=== PATIENT | male | born 1945 | race Caucasian/White ===

== ENCOUNTER 2019-01-27 08:17 | Day surgery (SDC) | payer OTHER, MEDICARE ==
[~2019-01-27 08:17] MED LIST: PROPOFOL INJ 200 MG/20 ML VIAL IV ONE
[2019-01-27 09:47] VITALS: BP 150/85
--- NOTE | 2019-01-27 11:25 | Operative Report ---
Operative Report DATE OF SURGERY: 01/27/19 Operative Report: The risks, benefits and alternatives of the procedure including the risk of bleeding, perforation requiring surgery have been explained to the patient in detail and informed consent has been obtained. The patient is taken back to the endoscopy suite and placed in the left, lateral decubital position. Timeout was called. Propofol medication is administered. Rectal examination is done which did not reveal any masses, tears or fissures. An Olympus videoscope was introduced into the patient's rectum. The scope was then carefully advanced all the way to the cecum. The cecum was identified by the usual anatomical landmarks of the ileocecal valve as well as the appendiceal orifice. Photodocumentation is obtained. The scope was then sequentially pulled back via the various segments of the colon including the ascending colon, hepatic flexure, transverse colon, splenic flexure, descending colon and finally into the rectosigmoid portions of the colon. Retroflexion maneuvers performed. PREOPERATIVE DIAGNOSIS: Colorectal cancer screening POSTOPERATIVE DIAGNOSIS: 2 Polyps in the ascending colon is removed via snare polypectomy and retrieved. 1 transverse colon polypremoved via snare polypecto my and retrieved. 1 descending colon polyp that is removed via snare polypectomy and retrieved. Diverticulosis without any evidence of diverticulitis. Internal hemorrhoids OPERATION: Colonoscopy with snare polypectomy SURGEON: DAVID GARLAND ANESTHESIA: LMAC TISSUE REMOVED OR ALTERED: As noted above. COMPLICATIONS: None. ESTIMATED BLOOD LOSS: None. INTRAOPERATIVE FINDINGS: As noted above. PROCEDURE: Patient tolerated the procedure well. No immediate postprocedure complications are noted. Patient is discharged in good condition. Discharge date 01/27/2019. Discharge diet: Regular. Discharge activity: Regular. 2 to 3-week follow-up to discuss findings. Patient is instructed to call the office or proceed to the emergency room should there be any further problems or questions. 3-year surveillance colonoscopy.
--- NOTE | 2019-01-27 13:14 | EKG REPORT ---
SEVERITY:- ABNORMAL ECG - SINUS RHYTHM POSSIBLE OLD INFERIOR VT, CLINICAL CORRELATION NEEDED : Confirmed by: Estuardo Patel MD 27-Jan-2019 13:13:38
== END 2019-01-27 09:50 | disposition home or self-care (01) ==
LOC: END 08:17
PROVIDERS: ATTEND Internal Medicine Gastroenterology
DX: Z12.11 Encounter for screening for malignant neoplasm of colon (principal); K57.30 Diverticulosis of large intestine without perforation or abscess without bleeding; K64.8 Other hemorrhoids; D12.3 Benign neoplasm of transverse colon; D12.2 Benign neoplasm of ascending colon; Z79.899 Other long term (current) drug therapy; Z79.82 Long term (current) use of aspirin
CPT/HCPCS: 45385; 88305 ×2; 93005; 93010; 00811; J2704; 811

== ENCOUNTER 2020-03-20 05:23 | Inpatient (IN) | payer MEDICARE, OTHER ==
[2020-03-15 10:18] LABS: HEMATOCRIT 45.4 % (37.9-51.0); HEMOGLOBIN 15.5 g/dL (13.5-17.0); MEAN CORPUSCULAR HEMOGLOBIN 30.2 pg (27.0-33.4); MEAN CORPUSCULAR HGB CONC 34.1 g/dL (32.0-36.0); MEAN CORPUSCULAR VOLUME 88 fl (80-97); PLATELET COUNT 230 10^3/uL (150-450); RED BLOOD COUNT 5.13 10^6/uL (4.35-5.55); RED CELL DISTRIBUTION WIDTH 14.5 % (11.5-14.0); WHITE BLOOD COUNT 6.9 10^3/uL (4.0-10.5)
[2020-03-15 10:27] LABS: APPEARANCE,URINE CLEAR; BILIRUBIN,URINE NEGATIVE (NEGATIVE); COLOR,URINE YELLOW; GLUCOSE, URINE NEGATIVE (NEGATIVE); KETONES,URINE NEGATIVE (NEGATIVE); LEUKOCYTE ESTERASE,URINE NEGATIVE (NEGATIVE); NITRITE,URINE NEGATIVE (NEGATIVE); PROTEIN,URINE NEGATIVE (NEGATIVE); URINE SPECIFIC GRAVITY 1.019; UROBILINOGEN,URINE NEGATIVE mg/dL (<2.0)
[2020-03-15 10:38] LABS: URINE AMPHETAMINES SCREEN NEGATIVE; URINE BARBITURATES SCREEN NEGATIVE; URINE BENZODIAZEPINES SCREEN NEGATIVE; URINE COCAINE SCREEN NEGATIVE; URINE MARIJUANA (THC) SCREEN NEGATIVE; URINE METHADONE SCREEN NEGATIVE; URINE PHENCYCLIDINE SCREEN NEGATIVE
[2020-03-15 10:47] LABS: INTERNATIONAL RATION (INR) 1.01; PROTHROMBIN TIME 13.5 SEC (11.4-15.4)
[2020-03-15 10:48] LABS: PARTIAL THROMBOPLASTIN TIME 37.6 SEC (23.5-35.8)
[2020-03-15 10:49] LABS: ANION GAP 11 (5-19); BLOOD UREA NITROGEN 16 mg/dL (7-20); CARBON DIOXIDE 30 mmol/L (22-30); CHLORIDE 102 mmol/L (98-107); GLUCOSE 131 mg/dL (75-110); POTASSIUM 3.4 mmol/L (3.6-5.0)
[2020-03-15 10:57] LABS: ALCOHOL < 10 mg/dL (NONE DETECTED)
--- NOTE | 2020-03-15 12:13 | RADIOLOGY REPORT (SQ) ---
EXAM DESCRIPTION: CHEST PA/LATERAL IMAGES COMPLETED DATE/TIME: 03/15/2020 11:24 am REASON FOR STUDY: PRE-OP COMPARISON: None EXAM PARAMETERS: NUMBER OF VIEWS: two views TECHNIQUE: Digital Frontal and Lateral radiographic views of the chest acquired. RADIATION DOSE: NA LIMITATIONS: none FINDINGS: LUNGS AND PLEURA: No opacities, masses or pneumothorax. No pleural effusion. MEDIASTINUM AND HILAR STRUCTURES: No masses or contour abnormalities. HEART AND VASCULAR STRUCTURES: Heart normal size. No evidence for failure. BONES: No acute findings. HARDWARE: None in the chest. OTHER: No other significant finding. IMPRESSION: NO SIGNIFICANT RADIOGRAPHIC FINDING IN THE CHEST. TECHNICAL DOCUMENTATION: JOB ID: [id number] 2010 [employer]- All Rights Reserved Reading location - IP/workstation name: [email or web address]
--- NOTE | 2020-03-15 21:18 | EKG REPORT ---
SEVERITY:- ABNORMAL ECG - SINUS RHYTHM PROBABLE INFERIOR INFARCT, AGE INDETERMINATE BORDERLINE PROLONGED QT INTERVAL : Confirmed by: Karol Roy MD 15-Mar-2020 21:18:03
[~2020-03-20 05:23] MED LIST changes: +CEFAZOLIN 2 GM/D5W RTU 2 GM/50 ML RTUPB IV ONE; +CEFAZOLIN 2 GM/D5W RTU 2 GM/50 ML RTUPB IV PRN; +LACTATED RINGERS 1000 ML IV PRN; +LIDOCAINE 0.5% INJ-PF (5 MG/ML) 50 ML SDV SUBCUT PRN; -PROPOFOL INJ 200 MG/20 ML VIAL IV ONE
[2020-03-20 06:28] LABS: POTASSIUM 3.3 mmol/L (3.6-5.0)
[2020-03-20] MEDS ORDERED: KETAMINE HCL INJ 500 MG/10 ML VIAL ONE (06:55)
[2020-03-20] MEDS ORDERED: LIDOCAINE 2% INJ-PF (20 MG/ML) 10 ML AMPUL ONE (06:55)
[2020-03-20] MEDS ORDERED: MIDAZOLAM 2 MG/2 ML INJ ONE (06:55)
[2020-03-20] MEDS ORDERED: FENTANYL CITRATE INJ/PF 250 MCG/5 ML AMPULE ONE (06:55)
[2020-03-20] MEDS ORDERED: EPHEDRINE SULFATE INJ 50 MG/1 ML AMPULE ONE (06:55)
[2020-03-20] MEDS ORDERED: PROPOFOL 1,000 MG/100 ML INFUS..BTL IV ONE (06:56)
[2020-03-20] MEDS ORDERED: PROPOFOL INJ 200 MG/20 ML VIAL IV ONE ×2 (06:56→11:53)
[2020-03-20] MEDS ORDERED: MINERAL OIL (STERILE) 10 ML VIAL ONE (07:20)
[2020-03-20] MEDS ORDERED: HEPARIN SOD (PORCINE) 1,000 UNIT/ML 10 ML VIAL ONE (07:20)
[2020-03-20] MEDS ORDERED: BACITRACIN INJ 50,000 UNIT VIAL ONE (07:20)
[2020-03-20] MEDS ORDERED: CEFAZOLIN INJ 1 GM VIAL ONE ×2 (08:09→12:02)
[2020-03-20] MEDS ORDERED: MEPERIDINE HCL/PF INJ 25 MG/1 ML DISP.SYRIN IV PRN (08:20)
[2020-03-20] MEDS ORDERED: PROMETHAZINE HCL INJ 25 MG/1 ML VIAL IV PRN (08:20)
[2020-03-20] MEDS ORDERED: MORPHINE SULFATE 10 MG/ML INJ IV PRN ×2 (08:20→13:24)
[2020-03-20] MEDS ORDERED: FENTANYL CITRATE INJ/PF 100 MCG/2 ML AMPUL IV PRN ×3 (08:20)
[2020-03-20] MEDS ORDERED: DIPHENHYDRAMINE HCL 50 MG/ML VIAL IV PRN ×2 (08:20→13:33)
[2020-03-20] MEDS: BUPIVACAINE INJ/PF LIPOSOME/PF 266 MG/20 ML SDV ONE ×2 (08:57→12:54)
[2020-03-20] MEDS ORDERED: ONDANSETRON HCL INJ/PF 4 MG/2 ML SDV ONE (09:49)
[2020-03-20] MEDS ORDERED: PHENYLEPHRINE HCL INJ/PF 10 MG/1 ML SDV ONE (09:49)
[2020-03-20] MEDS ORDERED: ROCURONIUM BROMIDE INJ 50 MG/5 ML VIAL IV ONE (09:49)
[2020-03-20] MEDS ORDERED: SUCCINYLCHOLINE CHLORIDE INJ 200 MG/10 ML VIAL ONE (09:49)
[2020-03-20] MEDS ORDERED: DEXAMETHASONE SOD PHOSPHATE INJ 4 MG/1 ML VIAL ONE (09:49)
[2020-03-20] MEDS ORDERED: BUPIVACAINE HCL 0.5 % INJ/PF 30 ML SDV ONE (12:34)
[2020-03-20] MEDS ORDERED: OXYCODONE-ACETAMINOPHEN 5-325 MG TABLET PO PRN (13:24)
[2020-03-20] MEDS ORDERED: RINGERS SOLUTION,LACTATED 1,000 ML IV PRN (13:24)
[2020-03-20] MEDS ORDERED: HYDROCODONE/ACETAMINOPHEN 5-325 MG TABLET PO PRN (13:24)
[2020-03-20] MEDS ORDERED: ACETAMINOPHEN 325 MG TABLET PO PRN (13:24)
--- NOTE | 2020-03-20 13:29 | Operative Report ---
Operative Report DATE OF SURGERY: 03/20/20 PREOPERATIVE DIAGNOSIS: L4-5 L5-S1 spondylolisthesis. L4-5 L5-S1 stenosis with neurogenic claudication. L4-5 L5-S1 radiculitis right-sided. Back pain. POSTOPERATIVE DIAGNOSIS: L4-5 L5-S1 spondylolisthesis. L4-5 L5-S1 stenosis with neurogenic claudication. L4-5 L5-S1 radiculitis right-sided. Back pain. Status post L4-5 L5-S1 anterior lateral interbody spacers and fusion robotically assisted and posterior fusion instrumentation robotically assisted L4-5 L5-S1 left-sided iliac crest aspiration for bone marrow concentration to be used with allograft in interbody spaces. OPERATION: L4-5 L5-S1 anterior lateral interbody spacers and fusion robotically assisted and posterior fusion instrumentation robotically assisted L4-5 L5-S1 left-sided iliac crest aspiration for bone marrow concentration to be used with allograft in interbody spaces. SURGEON: REYNA HARLEY 1ST DIRECTOR [employer]CIAL SALES: VASHTI DYKES COMPLICATIONS: None ESTIMATED BLOOD LOSS: 275 cc blood loss 175 cc of Cell Saver given back to the patient PROCEDURE: Patient is brought into the room placed under general anesthesia received 3 g of Ancef within 1 hour of cut time was placed on the Erick table medial epicondyles and axillary areas are well-padded. Neuro monitoring leads for SSEP and cranial motor testing are placed on the patient as well as a Malik catheter is placed preoperatively. After appropriate surgical timeout the Abzena robot is utilized and on the right posterior superior iliac spine a pin is placed and attached to the robot. After obtaining registration imaging in the AP and oblique position and verification 6.5 x 50 mm screws x2 at L4 6.5 x 50 mm screws x2 at L5 and 6.5 x 35 mm screw on the right at S1 and 6.5 x 40 mm screw on the left at S1 [facility] [employer] screws screws are inserted using portal incisions on the right and left at L4-5 and L5-S1. Left iliac crest is aspirated at 2 different sites total of 50 cc of bone marrow aspirate are obtained and concentrated to be used an interbody spacer with the allograft. Attention was then paid to the left sided anterior lateral portal for entry into the disc space which is carried out under navigation guidance upon verification also with x-rays and then stimulation thresholds greater than 17 mA. Upon inserting the portal into the disc space at L4-5 and L5-S1 fluoroscopy was used to verify the position as it did also to verify the screws position. Endplate dutch and curettes and brushes are used to carry out a complete discectomy then the verify balloon is inserted to verify good contact with the endplates. Incite cortical fibers/demineralized bone matrix with bone marrow aspirate concentrate are placed anterior in the disc space then the appropriate size mesh spacer is introduced into the interbody. The mesh spacer is soaked in bone marrow aspirate concentrate and is filled with bone graft showing good correct ion and good containment within the disc space at L4-5 and L5-S1. Upon neuro monitoring testing and cranial motor testing found to be stable then the portal is removed anterior laterally and attention is then paid to the placement of the rods upon using the caliper device the appropriate length rods were determined to be 70 mm rods on the right and on the left those are passed down and locked into position and final tightened. Then the tabs are removed and the portals are irrigated with copious amounts of irrigation and the posterior superior iliac spine pin connected to the robot is removed as well and the deep and superficial tissues were infiltrated with 1.3% Exparel 20 cc mixed with 20 cc of 0.5% bupivacaine plain. The portals are closed using 2-0 Vicryl and then Dermabond and Steri-Strips then 4 x 4's were used to cover the wounds on the right and the left and dressed with coverall tape. Please note that this procedure could not be done without the assistance of Deny Dykes working to assist with the placement of the screws positioning of the robot carrying out the aspiration through the left side iliac crest aspiration please also note that the iliac crest aspiration is carried out on the left side through a separate incision. Deny Chu was instrumental throughout this whole process and I could not have done this procedure without his assistance as mentioned above.
[2020-03-20] MEDS ORDERED: METHOCARBAMOL INJ/PF 1000 MG/10 ML SDV ONE (13:32)
[2020-03-20] MEDS ORDERED: MAGNESIUM HYDROXIDE SUSP 30 ML UDCUP PO PRN (13:33)
[2020-03-20] MEDS ORDERED: PROMETHAZINE HCL INJ 25 MG/1 ML VIAL IM PRN (13:33)
[2020-03-20] MEDS ORDERED: ACETAMINOPHEN 650 MG SUPP.RECT PR PRN (13:33)
[2020-03-20] MEDS ORDERED: DIAZEPAM 5 MG TABLET PO PRN (13:33)
[2020-03-20] MEDS ORDERED: DIPHENHYDRAMINE HCL 25 MG CAPSULE PO PRN (13:33)
[2020-03-20] MEDS ORDERED: ACETAMINOPHEN SOLN 325 MG/10.15 ML UDCUP PO PRN (13:33)
[2020-03-20] MEDS ORDERED: PROMETHAZINE HCL 25 MG TABLET PO PRN (13:33)
[2020-03-20] MEDS ORDERED: ONDANSETRON HCL INJ/PF 4 MG/2 ML SDV IV PRN (13:33)
[2020-03-20] MEDS ORDERED: METHOCARBAMOL 750 MG TABLET PO SCH (13:45)
[2020-03-20] MEDS ORDERED: METHOCARBAMOL INJ/PF 1000 MG/10 ML SDV IV ONE (14:30)
[2020-03-20] MEDS: METHOCARBAMOL 750 MG TABLET PO SCH ×2 (15:37→20:59)
--- NOTE | 2020-03-20 15:46 | RADIOLOGY REPORT (SQ) ---
EXAM DESCRIPTION: NO CHG FLUORO; L SPINE 2 VIEWS IMAGES COMPLETED DATE/TIME: 03/20/2020 3:31 pm REASON FOR STUDY: LUMBAR FUSION ASSISTED WITH FLUORO IN OR COMPARISON: None. FLUOROSCOPY TIME: 5.7 minutes 3 Images saved to PACS LIMITATIONS: None. PROCEDURE: Lumbar fusion assisted with fluoro FINDINGS: Images from fluoro document placement of posterior rods from L4-S1 with screws through the pedicles. IMPRESSION: Lumbar fusion assisted with fluoro. Refer to operative note for further information. COMMENT: PQRS 6045F: Fluoroscopy time of the procedure is documented in the report. TECHNICAL DOCUMENTATION: JOB ID: [id number] 2010 [employer]- All Rights Reserved Reading location - IP/workstation name: [email or web address]
--- NOTE | 2020-03-20 15:46 | RADIOLOGY REPORT (SQ) ---
EXAM DESCRIPTION: NO CHG FLUORO; L SPINE 2 VIEWS IMAGES COMPLETED DATE/TIME: 03/20/2020 3:31 pm REASON FOR STUDY: LUMBAR FUSION ASSISTED WITH FLUORO IN OR COMPARISON: None. FLUOROSCOPY TIME: 5.7 minutes 3 Images saved to PACS LIMITATIONS: None. PROCEDURE: Lumbar fusion assisted with fluoro FINDINGS: Images from fluoro document placement of posterior rods from L4-S1 with screws through the pedicles. IMPRESSION: Lumbar fusion assisted with fluoro. Refer to operative note for further information. COMMENT: PQRS 6045F: Fluoroscopy time of the procedure is documented in the report. TECHNICAL DOCUMENTATION: JOB ID: [id number] 2010 [employer]- All Rights Reserved Reading location - IP/workstation name: [email or web address]
[2020-03-20] MEDS ORDERED: OXYCODONE HCL IR 5 MG TABLET PO PRN ×2 (16:47→16:48)
[2020-03-20] MEDS: ASCORBIC ACID 500 MG TABLET PO SCH (17:55)
[2020-03-20] MEDS: CEFAZOLIN SODIUM 3 GM in DEXTROSE 5%-WATER 100 ML IV SCH (17:55)
[2020-03-20] MEDS: SENNOSIDES/DOCUSATE 8.6-50 MG 1 EACH TABLET PO SCH (17:55)
[2020-03-20] MEDS ORDERED: CEFAZOLIN SODIUM 3 GM in DEXTROSE 5%-WATER 100 ML IV SCH (18:00)
[2020-03-20] MEDS ORDERED: CEFAZOLIN SODIUM 3 GM in DEXTROSE 5%-WATER 50 ML IV SCH (18:00)
[2020-03-20] MEDS: ACETAMINOPHEN 325 MG TABLET PO SCH (20:59)
[2020-03-21] MEDS: CEFAZOLIN SODIUM 3 GM in DEXTROSE 5%-WATER 100 ML IV SCH (02:00)
[2020-03-21 05:14] LABS: HEMATOCRIT 39.9 % (37.9-51.0); HEMOGLOBIN 13.8 g/dL (13.5-17.0); MEAN CORPUSCULAR HEMOGLOBIN 30.4 pg (27.0-33.4); MEAN CORPUSCULAR HGB CONC 34.6 g/dL (32.0-36.0); MEAN CORPUSCULAR VOLUME 88 fl (80-97); PLATELET COUNT 194 10^3/uL (150-450); RED BLOOD COUNT 4.53 10^6/uL (4.35-5.55); WHITE BLOOD COUNT 10.5 10^3/uL (4.0-10.5)
[2020-03-21] MEDS ORDERED: LEVOTHYROXINE SODIUM 0.025 MG TABLET PO SCH (06:00)
[2020-03-21] MEDS ORDERED: LEVOTHYROXINE SODIUM 0.1 MG TABLET PO SCH (06:00)
[2020-03-21] MEDS: METHOCARBAMOL 750 MG TABLET PO SCH (06:39)
[2020-03-21] MEDS: ACETAMINOPHEN 325 MG TABLET PO SCH (06:39)
[2020-03-21] MEDS ORDERED: HYDROCHLOROTHIAZIDE 25 MG TABLET PO SCH (08:00)
[2020-03-21] MEDS: SENNOSIDES/DOCUSATE 8.6-50 MG 1 EACH TABLET PO SCH (09:45)
[2020-03-21] MEDS: ASCORBIC ACID 500 MG TABLET PO SCH (09:47)
[2020-03-21] MEDS ORDERED: (PENDING PHARMACY ID) (Levothyroxine Sodium [Synthroid] 125 MCG) PO SCH (10:00)
[2020-03-21] MEDS ORDERED: (PENDING PHARMACY ID) (Ascorbic Acid [Vitamin C] 500 MG) PO SCH (10:00)
[2020-03-21] MEDS ORDERED: AMLODIPINE BESYLATE 10 MG TABLET PO SCH (10:00)
[2020-03-21 11:26] VITALS: BP 151/93
[2020-03-22] MEDS ORDERED: BISACODYL 5 MG TABEC PO PRN (05:00)
[2020-03-22] MEDS ORDERED: BISACODYL 10 MG SUPP.RECT PR PRN (05:00)
== END 2020-03-21 12:56 | disposition home or self-care (01) | DRG 454 ==
LOC: INOR 05:23 → 4W 14:39
PROVIDERS: ADMIT Orthopaedic Surgery; ATTEND Orthopaedic Surgery
PROC: 0SG30A0 Fusion of Lumbosacral Joint with Interbody Fusion Device, Anterior Approach, Anterior Column, Open Approach (ICD-10-PCS; 2020-03-20)
PROC: 0ST40ZZ Resection of Lumbosacral Disc, Open Approach (ICD-10-PCS; 2020-03-20)
PROC: 07DR0ZZ Extraction of Iliac Bone Marrow, Open Approach (ICD-10-PCS; 2020-03-20)
PROC: 8E0W0CZ Robotic Assisted Procedure of Trunk Region, Open Approach (ICD-10-PCS; 2020-03-20)
PROC: 0SG3071 Fusion of Lumbosacral Joint with Autologous Tissue Substitute, Posterior Approach, Posterior Column, Open Approach (ICD-10-PCS; principal; 2020-03-20 07:30)
DX: M43.17 Spondylolisthesis, lumbosacral region (principal); Q21.1 Atrial septal defect; M48.07 Spinal stenosis, lumbosacral region; M54.17 Radiculopathy, lumbosacral region; I10 Essential (primary) hypertension; E11.40 Type 2 diabetes mellitus with diabetic neuropathy, unspecified; E89.0 Postprocedural hypothyroidism; G89.4 Chronic pain syndrome; Z20.828 Contact with and (suspected) exposure to other viral communicable diseases
CPT/HCPCS: 00630; 36415; 71046; 72100; 80048; 80307; 81001; 82947; 83036; 84132; 85027; 85610; 85730; 86850; 86900; 86901; 87070; 87635; 93005; 93010; 94760; 94799; C9290; C9803; J0330; J0690; J1100; J1644; J2250; J2370; J2405; J2704; J2800; J3010; J3490; J7060; J7120